=== PATIENT | female | born 1995 | race African-American/Black ===

== ENCOUNTER 2020-11-15 17:27 | Emergency (ER) | payer SELFPAY ==
[~2020-11-15] VITALS: Ht 170.2 cm; Wt 72.6 kg
[2020-11-15] MEDS ORDERED: ACETAMINOPHEN ES 500 MG TABLET ONE (17:59)
[2020-11-15] MEDS ORDERED: KETOROLAC TROMETHAMINE 60 MG INJ IM ONE ×2 (18:13→18:15)
[2020-11-15 18:22] LABS: *URINE HCG, QUAL NEGATIVE (NEGATIVE)
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
[2020-11-15] MEDS ORDERED: HYDROCODONE/APAP 10-325 MG TABLET PO ONE (19:30)
--- NOTE | 2020-11-15 20:20 | NUR ---
Pt complaining of 6/10 lower back pain, [place] 10mg given promptly, as well as two pillows placed in lower and mid back. Pt also states that she is hungry and hasnt eaten all day. Pt given a turkey sandwich lunch after administration of the norco pain killer.
[2020-11-15] MEDS ORDERED: HYDROCODONE/APAP 10-325 MG TABLET ONE (20:24)
[2020-11-15] MEDS ORDERED: IBUP-1957 PO (20:44)
[2020-11-15] MEDS ORDERED: HYDR-4209 PO (20:44)
--- NOTE | 2020-11-15 20:50 | NUR ---
EDMD at pt bedside discussing clinical impressions and giving aftercare instructions. Pt DCed home after confirming understanding of aftercare instuctions. Pt has great color, temp and appearance. VSS, PE WNL, states that her pain has significantly gotten better due to the norco 2/10 pain. Oxygenating and perfusing well. No s/sx of distress present.
[2020-11-15 21:09] VITALS: BP 129/91
== END 2020-11-15 20:50 | disposition home or self-care (01) ==
LOC: ER 17:30
DX: S29.012A Strain of muscle and tendon of back wall of thorax, initial encounter (principal); S39.012A Strain of muscle, fascia and tendon of lower back, initial encounter; S39.91XA Unspecified injury of abdomen, initial encounter; V49.40XA Driver injured in collision with unspecified motor vehicles in traffic accident, initial encounter; Y92.411 Interstate highway as the place of occurrence of the external cause
CPT/HCPCS: 72072; 72110; 74176; 84703; 96372; 99284; J1885; A4663; A9150